=== PATIENT | male | born 1985 | race Hispanic/Latino ===

== ENCOUNTER 2024-04-07 08:42 | Emergency (ER) | payer OTHER ==
[~2024-04-07] VITALS: Ht 170.2 cm; Wt 80.7 kg
[2024-04-07 08:43] VITALS: BP 125/94; PULSE 78; RESP 16; TEMP 98.1
--- NOTE | 2024-04-07 09:30 | NUR ---
PT WAS INFORMED THAT DR MADE AWARE OF HIS PAIN AND PT VERBALIZED WANTING TO LEAVE TO ANOTHER HOSPITAL IF PAIN MEDS WERE NOT ADM BILLY. DR GONZALEZ MADE AWARE.
--- NOTE | 2024-04-07 09:34 | ERN ---
ED Note History of Present Illness Stated Complaint: RECTAL ABSCESS Chief Complaint: Abscess Time Seen by MD: 08:53 Dictation: Left before being seen by provider Allergies: Coded Allergies: No Known Allergies (Verified Allergy, Unknown, 01/15/20) No Known Food Allergies (Unverified Allergy, Unknown, 01/16/20) Home Meds No Active Prescriptions or Reported Meds Past Medical History Past Medical History: No Pertinent History Surgical History: Other Surgical History Other: PERIANAL ABSCESS Review of System Dictation Left before being seen by provider Initial Vital Sign VS Vital Signs Date Time Temp Pulse Resp B/P (MAP) Pulse Ox O2 Delivery O2 Flow Rate FiO2 04/07/24 08:43 98.1 78 16 125/94 97 Room Air 0 Physical Exam Dictation Left before being seen by provider ED Course ED Course Vital Signs Date Time Temp Pulse Resp B/P (MAP) Pulse Ox O2 Delivery O2 Flow Rate FiO2 04/07/24 08:43 98.1 78 16 125/94 97 Room Air 0 Medical Decision Making MDM Left before being seen by provider DX & DISP Disposition: Other(Comment) (Left before being seen by provider) Departure Impression: Primary Impression: Encounter for medical assessment Condition: Stable Scripts No Active Prescriptions or Reported Meds Referrals: SELF,REFERRAL (PCP) I have reviewed, & agreed with my scribe's, documentation. (Entered by Emanuel Schafer, acting as a scribe for Dr. Gonzalez) I personally scribed for DOMINGA GONZALEZ MD ([email or web address]) on 04/07/24 at 09:34. Electronically submitted by Emanuel Schafer ([email or web address]). DOMINGA GONZALEZ MD Apr 07, 2024 09:34
--- NOTE | 2024-04-07 09:35 | NUR ---
PT DID NOT WANT TO WAIT ANY LONGER AND STATES HE IS GOING TO ANOTHER FACILITY. NAD, AMBULATING WITH OUT ASSISTANCE. DR GONZALEZ MADE AWARE.
== END 2024-04-07 09:50 | disposition left against medical advice (07) ==
LOC: EDH 08:42
DX: K61.1 Rectal abscess (principal); Z53.21 Procedure and treatment not carried out due to patient leaving prior to being seen by health care provider